=== PATIENT | female | born 1970 | race Caucasian/White ===

== ENCOUNTER → 2019-11-08 08:18 | Outpatient (BNVA) | payer BC, SELFPAY | PROVIDERS: Family Provider Nurse Practitioner; PCP Nurse Practitioner; Visit Provider Nurse Practitioner | DX: F41.1 Generalized anxiety disorder (principal); R53.82 Chronic fatigue, unspecified; J06.9 Acute upper respiratory infection, unspecified; E22.9 Hyperfunction of pituitary gland, unspecified | CPT/HCPCS: 80053; 80061; 82533; 84443; 85025 ==

== ENCOUNTER → 2020-05-20 09:56 | Outpatient (BNVA) | payer BC, SELFPAY | PROVIDERS: Family Provider Nurse Practitioner; PCP Nurse Practitioner; Visit Provider Family Medicine | DX: R53.82 Chronic fatigue, unspecified (principal); E88.01 Alpha-1-antitrypsin deficiency; F32.9 Major depressive disorder, single episode, unspecified; F43.10 Post-traumatic stress disorder, unspecified; F41.9 Anxiety disorder, unspecified; K59.09 Other constipation; H53.031 Strabismic amblyopia, right eye; Z68.25 Body mass index [BMI] 25.0-25.9, adult; F17.211 Nicotine dependence, cigarettes, in remission | CPT/HCPCS: 80053; 84443 ==

== ENCOUNTER 2020-10-27 14:19 | Outpatient (CLI) | payer BC, SELFPAY ==
--- NOTE | 2020-10-27 | CT_ITS ---
WS: [id number] CT HEAD TECHNIQUE: Noncontrast and contrast-enhanced CT of the head. CLINICAL INFORMATION: HEADACHES FREQUENT, 4 IN LAST 2 WEEKS COMPARISON: MRI and August 29, 2019 DLP: [id number] scans at [facility] use at least one of these dose optimization techniques: automat ed exposure control; mA and/or kV adjustment per patient size (includes targeted exams where dose is matched to clinical indication); or iterative reconstruction. FINDINGS: No evidence of intracranial hemorrhage or mass effect. Ventricular system and basal cisterns are rosado nt. Normal jim-white differentiation. No hydrocephalus. Normal suprasellar cistern. No abnormal intracranial enhancement. Tiny pituitary microadenoma better evaluated on the prior MRIs. CT/CT head wo/w con [id number] IMPRESSION: 1. No evidence of intracranial hemorrhage or mass effect. 2. Normal jim-white differentiation. 3. No abnormal intracranial enhancement. 4. Normal suprasellar cistern. Pituitary microadenoma better evaluated on prio r MRIs.
[2020-10-27] MEDS: iohexol 300 mg/mL 100 mL Btl IV (14:45)
== END 2020-10-27 14:20 | disposition home or self-care (01) ==
LOC: RADWPI 14:23
PROVIDERS: PCP Family Medicine Adult Medicine; Visit Provider Family Medicine Adult Medicine
DX: R51.9 Headache, unspecified (principal); D35.2 Benign neoplasm of pituitary gland
CPT/HCPCS: 70470; 88175; Q9967

== ENCOUNTER 2020-11-25 07:59 | Outpatient (CLI) | payer BC, SELFPAY ==
--- NOTE | 2020-11-25 08:30 | MM_ITS ---
WS: [id number] BILATERAL DIGITAL SCREENING MAMMOGRAPHY WITH CAD CLINICAL INFORMATION: Wellness chek HISTORY: Screening mammogram. No current complaints. COMPARISON: March 27, 2017 TECHNIQUE: Bilateral CC and MLO views. FINDINGS: The breasts are composed of heterogeneous fibroglandular density tissue, which can limit the detectio n of small underlying mass lesions. No suspicious mass, asymmetry, calcifications, or architectural d istortion. No evidence of malignancy. A few tiny punctate calcifications right breast. MM/[place] [id number] IMPRESSION: BI-RADS: 2-Benign FOLLOW UP: 1 Year Follow-up Recommend return to annual screening mammography.
== END 2020-11-25 08:00 | disposition home or self-care (01) ==
LOC: RADSHAW 08:03
PROVIDERS: PCP Family Medicine Adult Medicine; Visit Provider Family Medicine Adult Medicine
DX: Z00.00 Encounter for general adult medical examination without abnormal findings (principal)
CPT/HCPCS: 77067

== ENCOUNTER → 2022-06-23 15:04 | Outpatient (BNVA) | payer OTHER, SELFPAY | PROVIDERS: PCP Family Medicine Adult Medicine; Visit Provider Family Medicine Adult Medicine | DX: D35.2 Benign neoplasm of pituitary gland (principal); E22.9 Hyperfunction of pituitary gland, unspecified; J44.9 Chronic obstructive pulmonary disease, unspecified; U07.1 COVID-19; M79.7 Fibromyalgia; Z98.51 Tubal ligation status; Z98.890 Other specified postprocedural states; E88.01 Alpha-1-antitrypsin deficiency; G43.711 Chronic migraine without aura, intractable, with status migrainosus | CPT/HCPCS: 80053; 84146; 85025 ==

== ENCOUNTER → 2023-09-01 09:08 | Outpatient (BNVA) | payer OTHER, SELFPAY | PROVIDERS: PCP Family Medicine Adult Medicine; Visit Provider Family Medicine Adult Medicine | DX: R07.89 Other chest pain (principal); J44.9 Chronic obstructive pulmonary disease, unspecified | CPT/HCPCS: 71046 ==

== ENCOUNTER → 2024-05-16 10:51 | Outpatient (BNVA) | payer OTHER, SELFPAY | PROVIDERS: PCP Family Medicine Adult Medicine; Visit Provider Family Medicine Adult Medicine | DX: Z00.00 Encounter for general adult medical examination without abnormal findings (principal); M79.7 Fibromyalgia; E88.01 Alpha-1-antitrypsin deficiency; D35.2 Benign neoplasm of pituitary gland; E22.9 Hyperfunction of pituitary gland, unspecified | CPT/HCPCS: 80053; 80061; 84443; 85025 ==

== ENCOUNTER 2024-06-03 07:11 | Outpatient (CLI) | payer OTHER, SELFPAY ==
--- NOTE | 2024-06-03 07:30 | MM_ITS ---
WS: [id number] BILATERAL SCREENING DIGITAL TOMOSYNTHESIS MAMMOGRAM WITH CAD HISTORY: return to annual screening COMPARISON: 11/25/2020, 03/27/2017 Bilateral CC and MLO views with tomosynthesis and synthetic mammography submitted. Computer aided det ection analyzed. Breast composition: There are scattered areas of fibroglandular density. No suspicious masses, microc alcifications or architectural distortion. MM/[place] [id number] IMPRESSION: BI-RADS: 1-Negative FOLLOW UP: 1 Year Follow-up
== END 2024-06-03 07:12 | disposition home or self-care (01) ==
PROVIDERS: PCP Family Medicine Adult Medicine; Visit Provider Family Medicine Adult Medicine
DX: Z12.31 Encounter for screening mammogram for malignant neoplasm of breast (principal); R92.323 Mammographic fibroglandular density, bilateral breasts
CPT/HCPCS: 77063; 77067

== ENCOUNTER 2024-06-25 07:10 | Outpatient (CLI) | payer OTHER, SELFPAY ==
--- NOTE | 2024-06-25 07:15 | MR_ITS ---
WS: [id number] MRI HEAD WITHOUT CONTRAST TECHNIQUE: Sagittal T1, T2 axial, T2 axial FLAIR, axial and coronal T1 images, axial susceptibility w eighted imaging, axial diffusion weighted images, and coronal T2 images were obtained. CLINICAL INFORMATION: CT 10/27/2020 with pituitary adenoma, MR f/u COMPARISON: MRI 2018 2017 FINDINGS: Previously described tiny 2 mm lesion in the RIGHT aspect of the pituitary most consistent with micro adenoma appears unchanged compared to the prior studies. Recommend correlation with pituitary functio n studies. Normal optic chiasm and pituitary infundibulum. Note dedicated pituitary protocol was not performed. No evidence of restricted diffusion to suggest acute ischemia. Ventricular system and basal cisterns are patent. No suspicious intracranial signal abnormalities. Normal posterior fossa. Normal vascular flow voids at the skull base. No extra-axial fluid collections. No evidence of mass or mass effect. P aranasal sinuses and mastoid air cells are well aerated. Normal posterior nasopharynx. No hemosiderin on the susceptibly weighted images. MR/MR head wo con* [id number] IMPRESSION: 1. 2 mm microadenoma in the RIGHT aspect of the pituitary unchanged. 2. Recommend future follow-up studies be performed with MRI of the head withou t and with gadolinium enhancement with dynamic pituitary protocol. 3. No other significant changes. RECOMMEND FUTURE FOLLOW-UP STUDIES BE PERFORMED WITH MRI OF THE HEAD WITHOUT AND WITH GADOLINIUM ENHANCEMENT WITH DYNAMIC PITUITARY PROTOCOL FOR OPTIMAL EVALUATION OF THE PITUITARY.
== END 2024-06-25 07:11 | disposition home or self-care (01) ==
PROVIDERS: PCP Family Medicine Adult Medicine; Visit Provider Family Medicine Adult Medicine
DX: D35.2 Benign neoplasm of pituitary gland (principal)
CPT/HCPCS: 70551

== ENCOUNTER 2025-05-14 03:50 | Emergency (ER) | payer OTHER, SELFPAY ==
[2025-05-14 03:56] VITALS: BP 97/60; PULSE 74; RESP 16; TEMP 36.3; O2SAT 99; BMI 22.1
--- OUTSIDE RECORDS SUMMARY | 2025-05-14 04:01 | XMS_ITS | Patient Health Record ---
Author Organization [facility] Address [address] [place] [address] Support Name Relationship Address Phone Kelli Hutson Guarantor Unknown Reason For Referral No Information Plan Of Treatment No Information
--- NOTE | 2025-05-14 04:04 | W.ED.GENADLT ---
HPI - General Adult General: Chief complaint: Syncope Stated complaint: Cut on R eyebrow Fell on Rside of body [place]le cut Time Seen by Provider: 05/14/25 03:56 History of Present Illness: Patient comes in with a laceration to her right eyebrow. States that she got up and use the restroom and after having a bowel movement she stood up and felt nauseated and passed out. States that she has not had any nausea or vomiting since. Denies any headache. On physical exam she has a 2 cm laceration to her right eyebrow. Bleeding is controlled at this time. States she does not take any blood thinners. Her physical exam is unremarkable including a grossly normal neuroexam other than the laceration. Will clean and repair the wound. Will give her a tetanus shot, and reassess. Related Data Previous Rx's ?Medication ?Instructions ?Recorded albuterol sulfate 90 mcg/actuation 2 puff inhalation Q6H PRN 06/13/23 aerosol inhaler (ProAir HFA) shortness of breath or wheezing 30 days #18 grams fluticasone 250 mcg-salmeterol 50 1 inh inhalation BID breathing #60 06/13/23 mcg/dose blistr powdr for ea inhalation (Advair Diskus) venlafaxine 37.5 mg 37.5 mg PO DAILY mental health #90 10/14/24 capsule,extended release 24 hr caps (Effexor XR) hydroxyzine HCl 50 mg tablet See Rx Instructions .Route 04/13/25 .COMPLEX #30 tabs dextroamphetamine-amphetamine 15 15 mg PO BID adhd 30 days #60 tabs 04/22/25 mg tablet (Adderall) ibuprofen 800 mg tablet 800 mg PO Q8H PRN fever or pain 04/24/25 #90 tabs Allergies Allergy/AdvReac Type Severity Reaction Status Date / Time No Known Allergies Allergy Verified 01/20/25 08:08 Review of Systems Skin/Breast: Reports: other (Eyebrow laceration) [facility] ED PFS: Medical History (Updated 05/14/25 @ 04:26 by Moises Wall MD) Anxiety sees counsellor Carpal tunnel syndrome on left Insomnia hydroxyzine Attention and concentration deficit 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 Antitrypsin deficiency and former smoker Posttraumatic stress disorder sees therapist Strabismic amblyopia of right eye Pituitary microadenoma with hyperprolactinemia MRI due 8.24--needs to be of pituitary [id number] deficiency Intractable chronic migraine without aura and with status migrainosus Surgical History Hx of colonoscopy History of eye surgery for strabismus History of bilateral tubal ligation Family History Father Diabetes Mother CAD (coronary artery disease), Onset Age: 30 MS Diabetes Grandmother Hypertension Maternal Denies family history of Clotting disorder Hyperlipidemia Chronic kidney disease (CKD) Anesthesia complication Bleeding disorder Lung disease Cancer Stroke Social History Smoking and tobacco/nicotine status: never used tobacco/nicotine Alcohol intake: never Substance/Drug Use: never Caregiver/support person: No Lives independently: Yes Household members: spouse Marital status: Number of children: 3 Highest education level completed: GED or Equivalent service: No Current occupational status: employed Current occupation: [employer] Do you think of yourself as: Straight/Heterosexual Current gender identity: Female Physical Exam Const: COMMON NORMALS: no acute distress, patient oriented x3, healthy appearing and alert HENMT: OTHER: 2 cm laceration to the lateral right eyebrow Neck/C-Spine: COMMON NORMALS: full ROM and supple Resp: COMMON NORMALS: normal respiratory effort, No retractions and No use of accessory muscles Extremity: COMMON NORMALS: normal to inspection and full ROM Neuro: COMMON NORMALS: patient oriented x3 SENSORIUM/ORIENTATION: Yes alert Procedures Laceration Laceration 1: Site: face Side (If applicable): right Size (cm): 2 Description: linear Local Anesthetic: lidocaine 1% Amount of anesthesia used (mL): 4 Pre-repair: wound explored and irrigated extensively Skin layer closed with: other (Polysorb) Size (cm): 4-0 Number of sutures: 5 Technique: simple, interrupted Subcutaneous layer closed with: other (Polysorb) Size: 4-0 Number of sutures: 1 Technique: simple, interrupted Course Vital Signs: Vital signs: Vital Signs Temperature 97.4 F L 05/14/25 03:56 Pulse Rate 74 07/09/25 03:56 Respiratory Rate 16 05/14/25 03:56 Blood Pressure 97/60 05/14/25 03:56 Pulse Oximetry 99 05/14/25 03:56 Oxygen Delivery Me thod Room Air 05/14/25 03:56 MDM - General Adult Medical Decision Making Patient tolerated wound repair without complication. She states that she passed out after having a bowel movement that resulted in some nausea. Denies chest pain, shortness of breath, or other symptoms. We talked about wound care. We talked about symptoms that should prompt immediate return to the emergency department. Will discharge at this time with precautions to return for worsening or changing symptoms. No radiology studies performed this visit Discharge Plan Discharge Patient Disposition: Home Clinical Impression: Complex laceration of eyebrow, Vasovagal syncope Condition: Stable Prescriptions: No Action albuterol sulfate [ProAir HFA] 90 mcg/actuation HFA aerosol inhaler 2 puff INHALATION Q6H PRN (Reason: shortness of breath or wheezing) 30 Days Qty: 18 5RF Rx Instructions: 340 B medication fluticasone propion-salmeterol [Advair Diskus] 250-50 mcg/dose blister with device 1 inh inhalation BID Qty: 60 5RF venlafaxine [Effexor XR] 37.5 mg capsule,extended release 24hr 37.5 mg PO DAILY Qty: 90 1RF hydroxyzine HCl 50 mg tablet See Rx Instructions .ROUTE .COMPLEX Qty: 30 3RF Dose Instruction: TAKE 1 TABLET BY MOUTH AT LEAST ONE HOUR BEFORE BEDTIME NEEDED FOR sleep Rx Instructions: TAKE 1 TABLET BY MOUTH AT LEAST ONE HOUR BEFORE BEDTIME NEEDED FOR sleep dextroamphetamine-amphetamine [Adderall] 15 mg tablet 15 mg PO BID 30 Days Qty: 60 0RF ibuprofen 800 mg tablet 800 mg PO Q8H PRN (Reason: fever or pain) Qty: 90 5RF Discharge Orders: Discharge ED (Routine); Ordered 05/14/25 Ordered By: Moises Wall Referrals: Kerline Granger MD [Primary Care Provider, Family Practice] Patient Instructions: Laceration, Acute Wound Care (ED), Patient Portal & Ronaldo Instructions Print Language: [place] Coding Level of Care Code ED Geographic Information System Surveyor for Billie Osborne
[2025-05-14] MEDS: tetanus-diphtheria tox (adult) 0.5 mL SDV IM (04:35)
[2025-05-14] MEDS: ondansetron hcl ODT 4 mg Tab PO (04:55)
[2025-05-14 04:58] VITALS: BP 103/61; PULSE 64; RESP 16; O2SAT 97
== END 2025-05-14 05:02 | disposition home or self-care (01) ==
PROVIDERS: Emergency Provider Emergency Medicine; PCP Family Medicine
DX: S01.111A Laceration without foreign body of right eyelid and periocular area, initial encounter (principal); R55 Syncope and collapse; J44.9 Chronic obstructive pulmonary disease, unspecified; X58.XXXA Exposure to other specified factors, initial encounter
CPT/HCPCS: 12011; 90471; 90714; 99283; J9999; Q0162